=== PATIENT | female | born 1965 | race Caucasian/White ===

== ENCOUNTER 2020-02-07 15:01 | Inpatient (IN) | payer OTHER ==
[~2020-02-07] VITALS: Ht 160 cm; Wt 59.0 kg
[2020-02-07 15:20] VITALS: Ht 160 cm; Wt 59.0 kg
[2020-02-07 16:24] LABS: CALCIUM 9.3 mg/dL (8.5-10.1); CARBON DIOXIDE 26.7 mmol/L (21-32); CHLORIDE SERUM 102 mmol/L (98-107); GFR1 > 60 mL/min; GLUCOSE SERUM 123 mg/dL (74-106); POTASSIUM SERUM 4.1 mmol/L (3.5-5.1); SODIUM SERUM 139 mmol/L (136-145)
[2020-02-07 16:26] LABS: BASOPHIL % 0.2 % (0-2); PLATELET COUNT 241 x10^3mcL (130-400); RED CELL DISTRIBUTION WIDTH 12.8 % (11.5-14.5)
[2020-02-07 16:32] LABS: ALBUMIN 3.9 g/dL (3.4-5.0); ALKALINE PHOSPHATASE 91 U/L (46-116); ALT/SGPT 25 U/L (14-59); AST/SGOT 28 U/L (15-37); BILIRUBIN TOTAL 0.7 mg/dL (0.20-1.00); LIPASE 124 IU/L (73-393)
[2020-02-07 18:51] LABS: microscopic required? NO
[2020-02-07 19:02] LABS: urine erythrocyte NEGATIVE (NEGATIVE)
[2020-02-07 19:19] LABS: AMPHETAMINE QUAL UR NONE DETECTED (See below)
[2020-02-07] MEDS ORDERED: SIMVASTATIN5 M2 PO (19:50)
[2020-02-07] MEDS ORDERED: [UNRECOGNIZED DRUG - REMARK] (19:51)
[2020-02-07 23:26] VITALS: BP 127/71
[2020-02-08 05:33] VITALS: BP 99/56
[2020-02-08 06:49] LABS: CALCIUM 8.8 mg/dL (8.5-10.1); CARBON DIOXIDE 28.6 mmol/L (21-32); CREATININE SERUM 1.1 mg/dL (0.6-1.0); MAGNESIUM 1.7 mg/dL (1.8-2.4); PHOSPHOROUS 4.2 mg/dL (2.5-4.9)
[2020-02-08 07:50] LABS: BASOPHIL % 0.3 % (0-2); PLATELET COUNT 168 x10^3mcL (130-400); RED CELL DISTRIBUTION WIDTH 13.1 % (11.5-14.5)
[2020-02-08 08:26] VITALS: BP 102/55
[2020-02-08 12:25] VITALS: BP 105/60
[2020-02-08 16:42] VITALS: BP 106/59
[2020-02-08 21:12] VITALS: BP 110/67
[2020-02-09 05:51] VITALS: BP 105/59
[2020-02-09 06:56] LABS: BASOPHIL % 0.3 % (0-2); PLATELET COUNT 159 x10^3mcL (130-400)
[2020-02-09 07:59] VITALS: BP 105/61
[2020-02-09 13:14] VITALS: BP 117/43
[2020-02-09 17:00] VITALS: BP 103/60
[2020-02-09 19:20] VITALS: BP 111/65
[2020-02-10 05:14] VITALS: BP 113/61
[2020-02-10 06:24] LABS: BASOPHIL % 0.4 % (0-2); PLATELET COUNT 170 x10^3mcL (130-400); RED CELL DISTRIBUTION WIDTH 13.2 % (11.5-14.5)
[2020-02-10 06:37] LABS: CALCIUM 8.9 mg/dL (8.5-10.1); CARBON DIOXIDE 26.1 mmol/L (21-32); CHLORIDE SERUM 106 mmol/L (98-107); CREATININE SERUM 0.9 mg/dL (0.6-1.0); GFR1 > 60 mL/min; GLUCOSE SERUM 99 mg/dL (74-106); MAGNESIUM 1.7 mg/dL (1.8-2.4); POTASSIUM SERUM 4.1 mmol/L (3.5-5.1); SODIUM SERUM 141 mmol/L (136-145)
[2020-02-10 08:12] VITALS: BP 136/61
[2020-02-10 13:04] VITALS: BP 136/61
[2020-02-10 17:15] VITALS: BP 125/71
[2020-02-10 19:55] VITALS: BP 137/83
[2020-02-11 05:38] VITALS: BP 132/83
[2020-02-11 06:11] LABS: CALCIUM 9.2 mg/dL (8.5-10.1); CHLORIDE SERUM 106 mmol/L (98-107); CREATININE SERUM 0.9 mg/dL (0.6-1.0); GFR1 > 60 mL/min; GLUCOSE SERUM 111 mg/dL (74-106); POTASSIUM SERUM 4.2 mmol/L (3.5-5.1); SODIUM SERUM 143 mmol/L (136-145)
[2020-02-11 06:28] LABS: BASOPHIL % 0.3 % (0-2); PLATELET COUNT 204 x10^3mcL (130-400); RED CELL DISTRIBUTION WIDTH 12.8 % (11.5-14.5)
[2020-02-11 08:08] VITALS: BP 130/52
[2020-02-11 12:27] VITALS: BP 123/72
[2020-02-11 16:28] VITALS: BP 103/65
[2020-02-11 19:15] VITALS: BP 103/65
[2020-02-11 20:31] VITALS: BP 127/68
== END 2020-02-11 20:45 | disposition home or self-care (01) | DRG 720 ==
LOC: ED 15:01 → DU 18:30 → MU 18:30 → DU 21:13
PROVIDERS: Emergency Medicine; Surgery; ADMIT Student in an Organized Health Care Education/Training Program
DX: A41.9 Sepsis, unspecified organism (principal); N17.0 Acute kidney failure with tubular necrosis; K57.20 Diverticulitis of large intestine with perforation and abscess without bleeding; K65.9 Peritonitis, unspecified; E78.5 Hyperlipidemia, unspecified; Z68.23 Body mass index [BMI] 23.0-23.9, adult
CPT/HCPCS: G0378; J1885; J2543; J3475; J3490; J7030; Q0092